=== PATIENT | female | born 1960 | race Native Hawaiian/Other Pacific Islander ===

== ENCOUNTER 2021-03-31 12:36 | Emergency (ER) | payer BC ==
[2021-03-31 12:42] VITALS: RESP 18
[2021-03-31] MEDS ORDERED: IBUPROFEN 600 MG TAB PO STA (13:16)
[2021-03-31] MEDS ORDERED: ACETAMINOPHEN TAB 500 MG TAB PO STA (13:16)
--- NOTE | 2021-03-31 13:27 | ED ---
General Adult HPI - General Chief complaint: Shortness of Breath Stated complaint: COVID+ Time Seen by Provider: 03/31/21 12:40 Source: patient, RN notes reviewed, old records reviewed Mode of arrival: wheelchair Limitations: no limitations - History of Present Illness Initial comments: This is a 60-year-old female who presents to the emergency department stating that she a was diagnosis with COVID 7 days ago. Patient states she's had an increased cough since she decided come to the emergency department. Patient denies shortness of breath per patient denies chest pain or palpitations. Patient denies any nausea or vomiting. Patient denies any abdominal pain. Patient denies any swelling to the legs or calf tenderness. Patient again reiterates that she has no shortness of breath - Related Data Home Medications Medication Instructions Recorded Confirmed Albuterol Inhaler [Ventolin Hfa 2 puff INHALATION RT-Q6H PRN 03/31/21 03/31/21 Inhaler] Benzonatate [Benzonatate Perle] 200 mg PO TID 03/31/21 03/31/21 Doxycycline Monohydrate [Monodox] 100 mg PO Q12HR 03/31/21 03/31/21 Ondansetron Odt [Zofran Odt] 4 mg PO Q8H PRN 03/31/21 03/31/21 Potassium Chloride ER [K-Dur 10] 20 meq PO DAILY 03/31/21 03/31/21 predniSONE 40 mg PO DAILY 03/31/21 03/31/21 Allergies Allergy/AdvReac Type Severity Reaction Status Date / Time No Known Allergies Allergy Verified 03/31/21 15:22 Review of Systems ROS Statement: Those systems with pertinent positive or pertinent negative responses have been documented in the HPI. ROS Other: All systems not noted in ROS Statement are negative. Past Medical History Past Medical History: Skin Disorder Additional Past Medical History / Comment(s): freq heartburn, rash under breasts, History of Any Multi-Drug Resistant Organisms: None Reported Past Surgical History: Breast Surgery, Cholecystectomy, Ear Surgery, Tubal Ligation Additional Past Surgical History / Comment(s): biopsy -rt axilla Past Anesthesia/Blood Transfusion Reactions: Motion Sickness, Postoperative Nausea & Vomiting (PONV) Past Psychological History: No Psychological Hx Reported Smoking Status: Former smoker Past Alcohol Use History: Occasional Past Drug Use History: None Reported - Past Family History Father Family Medical History: Cancer General Exam - General Exam Comments Initial Comments: GENERAL: Patient is well-developed and well-nourished. Patient is nontoxic and well- hydrated and is in mild distress. ENT: Neck is soft and supple. No significant lymphadenopathy is noted. Oropharynx is clear. Moist mucous membranes. Neck has full range of motion without eliciting any pain. EYES: The sclera were anicteric and conjunctiva were pink and moist. Extraocular movements were intact and pupils were equal round and reactive to light. Eyelids were unremarkable. PULMONARY: Unlabored respirations. Good breath sounds bilaterally. Patient has crackles bilaterally CARDIOVASCULAR: There is a regular rate and rhythm without any murmurs gallops or rubs. ABDOMEN: Soft and nontender with normal bowel sounds. SKIN: Skin is clear with no lesions or rashes and otherwise unremarkable. NEUROLOGIC: Patient is alert and oriented x3. Cranial nerves II through XII are grossly intact. Motor and sensory are also intact. Normal speech, volume and content. Symmetrical smile. Cerebellar exam grossly intact. MUSCULOSKELETAL: Normal extremities with adequate strength and full range of motion. No lower extremity swelling or edema. No calf tenderness. LYMPHATICS: No significant lymphadenopathy is noted PSYCHIATRIC: Normal psychiatric evaluation. Limitations: no limitations Course Vital Signs 03/31/21 03/31/21 03/31/21 12:39 12:51 13:50 Temperature 100.1 F H Pulse Rate 120 H 117 H Respiratory 18 18 18 Rate Blood Pressure 115/78 118/75 O2 Sat by Pulse 94 L 93 L Oximetry 03/31/21 03/31/21 03/31/21 14:23 14:40 15:32 Temperature 99.5 F 99.4 F Pulse Rate 102 H 103 H 90 Respiratory 18 18 18 Rate Blood Pressure 112/74 108/65 108/69 O2 Sat by Pulse 93 L 93 L 93 L Oximetry Medical Decision Making - Medical Decision Making EKG shows sinus tachycardia at 115 bpm FL interval is on a 42 QRS is 72 QT interval 320 QTC is 442 per patient's EKG shows no ST segment elevation or depression. Chest x-ray shows COVID pneumonia. Patient received monoclonal antibodies. - Lab Data Result diagrams: 03/31/21 13:21 03/31/21 13:21 Lab Results 03/31/21 03/31/21 03/31/21 Range/Units 13:21 13:21 13:22 WBC 6.9 (3.8-10.6) k/uL RBC 4.22 (3.80-5.40) m/uL Hgb 12.9 (11.4-16.0) gm/dL Hct 36.4 (34.0-46.0) % MCV 86.2 (80.0-100.0) fL MCH 30.6 (25.0-35.0) pg MCHC 35.5 (31.0-37.0) g/dL RDW 12.4 (11.5-15.5) % Plt Count 328 (150-450) k/uL MPV 7.2 Neutrophils % 81 % Lymphocytes % 11 % Monocytes % 3 % Eosinophils % 2 % Basophils % 1 % Neutrophils # 5.6 (1.3-7.7) k/uL Lymphocytes # 0.8 L (1.0-4.8) k/uL Monocytes # 0.2 (0-1.0) k/uL Eosinophils # 0.1 (0-0.7) k/uL Basophils # 0.0 (0-0.2) k/uL Sodium 134 L (137-145) mmol/L Potassium 3.5 (3.5-5.1) mmol/L Chloride 100 (98-107) mmol/L Carbon Dioxide 23 (22-30) mmol/L Anion Gap 11 mmol/L BUN 10 (7-17) mg/dL Creatinine 0.60 (0.52-1.04) mg/dL Est GFR (CKD-EPI)AfAm >90 (>60 ml/min/1.73 sqM) Est GFR (CKD-EPI)NonAf >90 (>60 ml/min/1.73 sqM) Glucose 148 H (74-99) mg/dL Calcium 8.6 (8.4-10.2) mg/dL Total Bilirubin 1.0 (0.2-1.3) mg/dL AST 45 H (14-36) U/L ALT 33 (4-34) U/L Alkaline Phosphatase 70 (38-126) U/L Total Protein 6.9 (6.3-8.2) g/dL Albumin 3.4 L (3.5-5.0) g/dL Coronavirus (PCR) Detected A (Not Detectd) Disposition Clinical Impression: COVID-19 Disposition: HOME SELF-CARE Condition: Good Instructions (If sedation given, give patient instructions): Coronavirus Disease 2019 (COVID-19) Additional Instructions: Patient should return is any difficulty breathing or shortness of breath. Is patient prescribed a controlled substance at d/c from ED?: No Referrals: Taylor Nunez PAC [Primary Care Provider] - 1-2 days Time of Disposition: 16:25
[2021-03-31 13:40] LABS: ALT 33 U/L (4-34); AST 45 U/L (14-36); African American GFR (CKD) >90 (>60 ml/min/1.73 sqM); Albumin 3.4 g/dL (3.5-5.0); Alkaline Phosphatase 70 U/L (38-126); Anion Gap 11 mmol/L; Blood Urea Nitrogen 10 mg/dL (7-17); Calcium 8.6 mg/dL (8.4-10.2); Carbon Dioxide 23 mmol/L (22-30); Chloride 100 mmol/L (98-107); Glucose 148 mg/dL (74-99); Non-African American GFR(CKD) >90 (>60 ml/min/1.73 sqM); Potassium 3.5 mmol/L (3.5-5.1); Sodium 134 mmol/L (137-145); Total Protein 6.9 g/dL (6.3-8.2)
[2021-03-31 13:49] LABS: Basophils % (A) 1 %; Eosinophils # (A) 0.1 k/uL (0-0.7); Eosinophils % (A) 2 %; HCT 36.4 % (34.0-46.0); HGB 12.9 gm/dL (11.4-16.0); Lymphocytes # (A) 0.8 k/uL (1.0-4.8); Lymphocytes % (A) 11 %; MCH 30.6 pg (25.0-35.0); MCHC 35.5 g/dL (31.0-37.0); MCV 86.2 fL (80.0-100.0); Mean Platelet Volume 7.2; Monocytes # (A) 0.2 k/uL (0-1.0); Monocytes % (A) 3 %; Neutrophils # (A) 5.6 k/uL (1.3-7.7); Neutrophils % (A) 81 %; Platelet Count 328 k/uL (150-450); RBC 4.22 m/uL (3.80-5.40); RDW 12.4 % (11.5-15.5); WBC 6.9 k/uL (3.8-10.6)
--- NOTE | 2021-03-31 14:13 | XR ---
EXAMINATION TYPE: XR chest 1V portable DATE OF EXAM: 03/31/2021 COMPARISON: NONE HISTORY: Shortness of breath TECHNIQUE: Single frontal view of the chest is obtained. FINDINGS: Patchy groundglass opacities present bilaterally in the peripheral lungs. No evident pneum othorax or pleural effusion. Cardiac mediastinal silhouette is within normal limits. There are overly ing leads. Surgical ty are present in the right axillary region. IMPRESSION: Correlate for pneumonia, consider Covid infection.
[2021-03-31] MEDS ORDERED: BAMLANIVIMAB (EUA) 700 MG, ETESEVIMAB (EUA) 1,400 MG in SODIUM CHLORIDE 0.9% 50 ML IVPB ONE (14:30)
[2021-03-31] MEDS ORDERED: SODIUM CHLORIDE 0.9% 50 ML IVPB ONE (14:30)
[2021-03-31 14:49] VITALS: TEMP 99.4
[2021-03-31 16:27] VITALS: BP 106/67; PULSE 91
== END 2021-03-31 16:30 | disposition home or self-care (01) ==
LOC: EC 12:36
DX: Z90.49 Acquired absence of other specified parts of digestive tract (principal); Z98.51 Tubal ligation status; Z87.891 Personal history of nicotine dependence; U07.1 COVID-19
CPT/HCPCS: 36415; 93005; 80053; 85025; 87635; 71045; 99284; Q0245